=== PATIENT | male | born 1995 | race Two or more races ===

== ENCOUNTER 2025-01-11 21:21 | Emergency (ER) | payer MEDICAID ==
[~2025-01-11] VITALS: Ht 170.2 cm; Wt 67.6 kg
[2025-01-11 23:37] VITALS: BP 142/90; TEMP 98.7; O2SAT 100
== END 2025-01-12 02:19 | disposition home or self-care (01) ==
LOC: ER 21:24
DX: M54.50 Low back pain, unspecified (principal)